=== PATIENT | female | born 1995 | race American Indian/Alaskan Native ===

== ENCOUNTER 2020-09-11 00:21 | Emergency (ER) | payer MEDICAID ==
[2020-09-11] MEDS ORDERED: ACETAMINOPHEN 500 MG TAB PO ONE (01:49)
[2020-09-11 02:17] LABS: Basophils % (Auto) 0.2 % (0.0-1.8); Eosinophils # (Auto) 0.3 K/mm3 (0.0-0.4); Eosinophils % (Auto) 2.6 % (0.0-4.3); Hematocrit 38.2 % (30.3-42.9); Hemoglobin 12.5 gm/dl (10.1-14.3); Lymphocytes # (Auto) 1.9 K/mm3 (1.2-5.4); Lymphocytes % (Auto) 17.2 % (13.4-35.0); Mean Corpuscular HGB Conc 33 % (30-34); Mean Corpuscular Volume 92 fl (79-97); Monocytes # (Auto) 0.9 K/mm3 (0.0-0.8); Monocytes % (Auto) 7.9 % (0.0-7.3); Platelet Count 217 K/mm3 (140-440); Red Blood Count 4.17 M/mm3 (3.65-5.03)
[2020-09-11 02:35] LABS: Alanine Aminotransferase 12 units/L (7-56); Albumin 4.3 g/dL (3.9-5); Blood Urea Nitrogen 10 mg/dL (7-17); Calcium 9.2 mg/dL (8.4-10.2); Hemolysis Index 1
[2020-09-11 02:44] LABS: Bacteria,Urine 1+ /HPF (Negative); Bilirubin,Urine NEG (Negative); Blood,Urine NEG (Negative); Color,Urine Yellow (Yellow); Mucus,Urine FEW /HPF; Protein,Urine <15 mg/dL mg/dL (Negative)
[2020-09-11 02:52] LABS: BUN/Creatinine Ratio 17
--- NOTE | 2020-09-11 03:39 | Ultrasound Report ---
EARLY OBSTETRICAL ULTRASOUND INDICATION: pelvic pain COMPARISON: None pertinent available TECHNIQUE: Transabdominal and endovaginal FINDINGS: Uterus measures 8.2 cm in length. Small intrauterine gestational sac is seen with double wa ll sign noted. Yolk sac is seen. No pole is identified. Estimated gestational age by sac size i s 5 weeks 5 days. No cardiac activity is detected. No implantational bleed is seen. Right ovary measures 4.3 cm in length and shows small follicular-type cysts. Left ovary measures 4.1 cm in length and shows small follicular-type cysts. Flow is noted in both ovaries. Small amount of free fluid is seen. IMPRESSION: Small intrauterine is noted but I cannot confirm viability. I suspect this is a nonviable but I would suggest follow-up. Signer Name: Stalin Vargas MD Signed: 09/11/2020 3:35 AM Workstation Name: [id number]
--- NOTE | 2020-09-11 04:04 | Emergency Department Report ---
ED Female HPI - General Chief complaint: Abdominal Pain Stated complaint: NEWLY /CRAMPING REALLY BAD Source: patient Mode of arrival: Ambulatory Limitations: No Limitations - History of Present Illness Initial comments: Patient is a A0 25-year-old -[place] female who is approximately 5 to 6 weeks gestation who presents to the ED with complaint of acute onset persistent suprapubic pain that radiates to the right lower quadrant area for the last 3 days. Patient also complains of nausea with pain. Patient states that her LMP was July 24, 2020 and that she usually has regular menstrual cycle, and that she is not use any contraceptives. Patient states that she performed a home-based yuerj-bz-[id number] urine test which was positive twice 3 days ago when she started developing suprapubic pain and generalized fatigue. Patient states that in the last 12 hours the pain has worsened and she decided come to the ED for evaluation. Patient denies vaginal bleeding, vaginal discharge, dysuria, urinary frequency and urgency, heavy lifting, traumatic injury, low back pain, chest pain, shortness of breath, dizziness, fever and chills, dyspareunia or diarrhea and vomiting. MD Complaint: pelvic pain -: Sudden, days(s) (3) Location: suprapubic Radiation: non-radiating Severity: severe Severity scale (0 -10): 8 Quality: cramping, sharp, aching Consistency: constant Improves with: none Worsens with: none Are you Now?: Yes Last Menstrual Period: 07/21/20 EDC: 04/27/21 Associated Symptoms: denies other symptoms, abdominal pain. denies: vaginal discharge, vaginal bleeding, nausea/vomiting, fever/chills, headaches, loss of appetite, dysuria, hematuria, rash, seizure, shortness of breath, syncope, weakness, other - Related Data Sexually active: Yes : 2 Para: 1 A: 0 Previous Rx's Medication Instructions Recorded Last Taken Type Acetaminophen [Tylenol] 500 mg PO Q6HR #30 tablet 09/11/20 Unknown Rx Vit-Fe Fumar-FA [ 1 tab PO QDAY #60 tablet 09/11/20 Unknown Rx Vitamin] Promethazine [Phenergan] 25 mg PO Q6HR PRN #30 tab 09/11/20 Unknown Rx Allergies Allergy/AdvReac Type Severity Reaction Status Date / Time No Known Allergies Allergy Unverified 09/11/20 01:43 ED Review of Systems ROS: Stated complaint: NEWLY /CRAMPING REALLY BAD Other details as noted in HPI Constitutional: denies: chills, fever Eyes: denies: eye pain, eye discharge, vision change ENT: denies: ear pain, throat pain Respiratory: denies: cough, shortness of breath, wheezing Cardiovascular: denies: chest pain, palpitations Endocrine: no symptoms reported Gastrointestinal: abdominal pain (suprapubic). denies: nausea, vomiting, diarrhea, constipation, hematemesis, hematochezia Genitourinary: denies: urgency, dysuria, discharge Musculoskeletal: denies: back pain, joint swelling, arthralgia Skin: denies: rash, lesions Neurological: denies: headache, weakness, paresthesias Psychiatric: denies: anxiety, depression Hematological/Lymphatic: denies: easy bleeding, easy bruising ED Past Medical Hx - Past Medical History Previous Medical History?: No - Surgical History Past Surgical History?: Yes Additional Surgical History: - Social History Smoking Status: Never Smoker - Medications Home Medications: Home Medications Medication Instructions Recorded Confirmed Last Taken Type Acetaminophen [Tylenol] 500 mg PO Q6HR #30 tablet 09/11/20 Unknown Rx Vit-Fe Fumar-FA [ 1 tab PO QDAY #60 tablet 09/11/20 Unknown Rx Vitamin] Promethazine [Phenergan] 25 mg PO Q6HR PRN #30 tab 09/11/20 Unknown Rx ED Physical Exam - General Limitations: No Limitations General appearance: alert, in no apparent distress - Head Head exam: Present: atraumatic, normocephalic, normal inspection - Eye Eye exam: Present: normal appearance, PERRL, EOMI Pupils: Present: normal accommodation - ENT ENT exam: Present: normal exam, normal orophraynx, mucous membranes moist, TM's normal bilaterally, normal external ear exam - Neck Neck exam: Present: normal inspection, full ROM - Respiratory Respiratory exam: Present: normal lung sounds bilaterally. Absent: respiratory distress, wheezes, rales, rhonchi, accessory muscle use, decreased breath sounds - Cardiovascular Cardiovascular Exam: Present: regular rate, normal rhythm, normal heart sounds. Absent: systolic murmur, diastolic murmur, rubs, gallop - GI/Abdominal GI/Abdominal exam: Present: soft, tenderness (Palpable suprapubic moderate tenderness), normal bowel sounds. Absent: guarding, rebound, hyperactive bowel sounds, hypoactive bowel sounds, organomegaly - Bi-manual exam: Present: other (Pelvic exam deferred) - Extremities Exam Extremities exam: Present: normal inspection, full ROM, normal capillary refill - Back Exam Back exam: Present: normal inspection, full ROM. Absent: tenderness, CVA ten derness (R), CVA tenderness (L), muscle spasm, paraspinal tenderness, vertebral tenderness - Neurological Exam Neurological exam: Present: alert, oriented X3, CN II-XII intact, normal gait, reflexes normal - Psychiatric Psychiatric exam: Present: normal affect, normal mood - Skin Skin exam: Present: warm, dry, intact, normal color. Absent: rash ED Course Vital Signs 09/11/20 03:37 Respiratory 20 Rate ED Medical Decision Making - Lab Data Result diagrams: 09/11/20 01:54 09/11/20 01:54 - Radiology Data Radiology results: report reviewed, [place] [address] Ultrasound Report Signed Patient: EDWIN NELSON MR#: [id number] : 1995 Acct:[id number] Age/Sex: 25 / F ADM Date: 09/11/20 Loc: ED Attending Dr: Ordering Physician: KENNETH SEBASTIAN Date of Service: 09/11/20 Procedure(s): US OB transvaginal Accession Number(s): [id number] cc: KENNETH SEBASTIAN EARLY OBSTETRICAL ULTRASOUND INDICATION: pelvic pain COMPARISON: None pertinent available TECHNIQUE: Transabdominal and endovaginal FINDINGS: Uterus measures 8.2 cm in length. Small intrauterine gestational sac is seen with double wall sign noted. Yolk sac is seen. No pole is identified. Estimated gestational age by sac size is 5 weeks 5 days. No cardiac activity is detected. No implantational bleed is seen. Right ovary measures 4.3 cm in length and shows small follicular-type cysts. Left ovary measures 4.1 cm in length and shows small follicular-type cysts. Flow is noted in both ovaries. Small amount of free fluid is seen. IMPRESSION: Small intrauterine is noted but I cannot confirm viability. I suspect this is a nonviable but I would suggest follow-up. Signer Name: Stalin Vargas MD Signed: 09/11/2020 3:35 AM Workstation Name: [id number] Transcribed By: ADOLFO Dictated By: Stalin Vargas MD Electronically Authenticated By: Stalin Vargas MD Signed Date/Time: 09/11/20334 DD/ 1 TD/TT: - Medical Decision Making This is a A0 25-year-old -[place] female who is approximately 5 to 6 weeks gestation who presents to the ED with complaint of acute onset persistent suprapubic pain that radiates to the right lower quadrant area for the last 3 days. Patient also complains of nausea with pain. Patient states that her LMP was July 24, 2020 and that she usually has regular menstrual cycle, and that she is not use any contraceptives. Patient states that she performed a home- based detpu-jz-hdfu urine test which was positive twice 3 days ago when she started developing suprapubic pain and generalized fatigue. Patient states that in the last 12 hours the pain has worsened and she decided come to the ED for evaluation. In the ED, patient is alert and oriented x3 and is not in distress. Patient was treated for pain in the ED with Tylenol. Lab test re sults were reviewed and showed hCG quant of [id number]. The rest of the lab test results are nonactionable. The transvaginal ultrasound showed a small intrauterine with a yolk sac measuring 5 weeks and 5 days approximately but no heart activity. The differentials may mean that the is too early or is nonviable. On reevaluation, patient's pain is well controlled medications. Patient was discharged home and advised to maintain a complete pelvic rest, follow-up with [facility] OPERATOR HELPER physician in 24 to 48 hours for reevaluation or return to the ED immediately if symptoms get worse. Patient was advised to return to the ED for serial hCG quant studies test to ascertain the viability of the . - Differential Diagnosis UTI; Ovarian cyst; Ectopic preg; dysmenorrhea; Fibroids; Molar Critical care attestation.: If time is entered above; I have spent that time in minutes in the direct care of this critically ill patient, excluding procedure time. ED Disposition Clinical Impression: Abdominal pain during in first trimester, at early stage Disposition: DC-01 TO HOME OR SELFCARE Is pt being admited?: No Does the pt Need Aspirin: No Condition: Stable Instructions: Abdominal Pain (ED), Abdominal Pain During , Eas y-to-Read, First Trimester of , [id number] Additional Instructions: MAINTAIN A COMPLETE PELVIC REST WITH NO PHYSICAL OR SEXUAL ACTIVITIES, TAKE PAIN MEDICATION NEEDED WITH FOOD, DRINK PLENTY OF FLUIDS AND FOLLOW UP WITH YOUR [facility] ANALYST PHYSICIAN IN 3-5 DAYS FOR REEVALUATION. RETURN TO THE ED IMMEDIATELY IF SYMPTOMS GET WORSE. Prescriptions: Acetaminophen [Tylenol] 500 mg PO Q6HR #30 tablet Promethazine [Phenergan] 25 mg PO Q6HR PRN #30 tab PRN Reason: Nausea Vit-Fe Fumar-FA [ Vitamin] 1 tab PO QDAY #60 tablet Referrals: JAKOB PHILLIP MD [Staff Physician] - 3-5 Days Time of Disposition: 04:06 Print Language: BULGARIAN
[2020-09-11 04:26] VITALS: BP 146/72
== END 2020-09-11 04:46 | disposition home or self-care (01) ==
LOC: ED 00:21
DX: O26.891 Other specified pregnancy related conditions, first trimester (principal); R10.2 Pelvic and perineal pain; Z3A.01 Less than 8 weeks gestation of pregnancy; Z98.890 Other specified postprocedural states; Z79.899 Other long term (current) drug therapy
CPT/HCPCS: 36415; 76801; 76817; 80053; 81001; 84702; 85025

== ENCOUNTER 2021-01-12 18:05 | Outpatient (CLI) | payer MEDICAID ==
[2021-01-12 18:39] VITALS: BP 112/66
[2021-01-12] MEDS ORDERED: LACTATED RINGERS 1,000 ML IV SCH (18:45)
[2021-01-12 18:58] LABS: Bacteria,Urine 1+ /HPF (Negative); Bilirubin,Urine SM (Negative); Blood,Urine NEG (Negative); Color,Urine Amber (Yellow); Mucus,Urine 3+ /HPF
[2021-01-12 19:51] LABS: Ictotest,Urine Negative (Negative)
[2021-01-12] MEDS ORDERED: NITROFURANTOIN MONOHYD/M-CRYST 100 MG CAP PO SCH (22:00)
== END 2021-01-12 20:14 | disposition home or self-care (01) ==
LOC: TRG 18:05 → APU 18:06 → TRG 20:14
PROVIDERS: ATTEND Obstetrics & Gynecology
DX: Z34.92 Encounter for supervision of normal pregnancy, unspecified, second trimester (principal); Z3A.23 23 weeks gestation of pregnancy
CPT/HCPCS: 59025; 81001; 87086

== ENCOUNTER 2021-02-14 21:11 | Outpatient (CLI) | payer MEDICAID ==
[2021-02-14 21:53] VITALS: BP 92/55
[2021-02-14] MEDS ORDERED: LACTATED RINGERS 1,000 ML IV ONE ×2 (22:05→22:50)
[2021-02-14 22:34] LABS: Bilirubin,Urine NEG (Negative); Blood,Urine NEG (Negative); Color,Urine Yellow (Yellow); Mucus,Urine 3+ /HPF
[2021-02-14] MEDS ORDERED: ONDANSETRON 4 MG/2 ML INJ IV ONE (22:50)
== END 2021-02-15 00:30 | disposition home or self-care (01) ==
LOC: TRG 21:11
PROVIDERS: ATTEND Obstetrics & Gynecology
DX: O21.2 Late vomiting of pregnancy (principal); O99.353 Diseases of the nervous system complicating pregnancy, third trimester; G43.909 Migraine, unspecified, not intractable, without status migrainosus; Z3A.29 29 weeks gestation of pregnancy
CPT/HCPCS: 59025; 81001; 96361; 96374; J2405; J7120; 96360

== ENCOUNTER 2021-03-28 02:55 | Outpatient (CLI) | payer MEDICAID ==
[2021-03-28] MEDS ORDERED: LACTATED RINGERS 1,000 ML IV ONE ×2 (03:29→07:09)
[2021-03-28 11:35] LABS: Bilirubin,Urine NEG (Negative); Blood,Urine NEG (Negative); Color,Urine Yellow (Yellow); Mucus,Urine 2+ /HPF; Protein,Urine <15 mg/dL mg/dL (Negative); Urobilinogen,Urine < 2.0 mg/dL (<2.0)
[2021-03-28] MEDS ORDERED: ceFAZolin/NS 1 GM/50 ML 1 GM/50 ML BAG IV SCH (12:30)
[2021-04-27 17:22] VITALS: BP 139/76
== END 2021-03-28 14:05 | disposition home or self-care (01) ==
LOC: TRG 02:55 → APU 03:03 → TRG 14:05
PROVIDERS: ATTEND Obstetrics & Gynecology
DX: O62.9 Abnormality of forces of labor, unspecified (principal); O36.8130 Decreased fetal movements, third trimester, not applicable or unspecified; Z3A.34 34 weeks gestation of pregnancy
CPT/HCPCS: 59025; 81001; 96361; 96365; 96366; J0690; J7120; 96360